=== PATIENT | male | born 1965 | race Caucasian/White ===

== ENCOUNTER 2020-11-01 10:21 | Outpatient (REF) | payer OTHER, SELFPAY | END 2020-11-01 10:22 | disposition home or self-care (01) | LOC: HO.LAB 10:21 | PROVIDERS: Visit Provider Internal Medicine | DX: Z20.828 Contact with and (suspected) exposure to other viral communicable diseases (principal) | CPT/HCPCS: C9803; U0003 ==

== ENCOUNTER 2022-01-22 06:14 | Outpatient (REF) | payer OTHER, SELFPAY ==
[2022-01-22 06:28] LABS: MANUAL DIFF FLAG NO
[2022-01-22 07:36] LABS: Basophils Percent Auto 0.3 % (0-2); Eosinophils Absolute Auto 0.1 X10*3/uL (0.0-0.4); Eosinophils Percent Auto 1.1 % (0-4); Hematocrit 43.9 % (42.0-52.0); Hemoglobin 14.7 g/dl (14.0-18.0); Imm Gran Abs Auto 0.02 X10*3/uL (0.00-0.03); Imm Gran Pct Auto 0.3 % (0.0-0.4); Lymphocytes Absolute Auto 2.3 X10*3/uL (1.2-4.9); Lymphocytes Percent Auto 36.9 % (20-40); Mean Corpuscular HGB Conc 33.5 g/dl (31.0-36.0); Mean Corpuscular Hemoglobin 30.5 pg (27.0-33.0); Mean Corpuscular Volume 91.1 fL (80.0-98.0); Mean Platelet Volume 9.9 fL (9.4-12.4); Monocytes Absolute Auto 0.5 X10*3/uL (0.1-1.2); Monocytes Percent Auto 7.7 % (2-11); Neutrophils Absolute Auto 3.3 x10*3/uL (2.0-8.3); Neutrophils Percent Auto 53.7 % (45-73); Platelet Count 293 X10*3/uL (160-400); Red Blood Count 4.82 X10*6/uL (4.60-5.80); Red Cell Distribution Width 11.9 % (11.0-16.0); White Blood Count 6.1 X10*3/uL (4.8-10.8)
[2022-01-22 08:08] LABS: Alanine Aminotransferase 35 U/L (0-40); Albumin Level 4.7 g/dL (3.5-5.0); Alkaline Phosphatase 91 U/L (39-117); Anion Gap 12 (12-20); Aspartate Amino Transferase 30 U/L (5-37); Bilirubin Direct 0.4 mg/dL (0.0-0.5); Bilirubin Total 1.1 mg/dL (0.0-1.0); Blood Urea Nitrogen 18 mg/dL (9-16); Carbon Dioxide 28 mmol/L (22-29); Chloride 104 mmol/L (96-108); Cholesterol 212 mg/dL; Estimated Glomerular Filt Rate > 60; Glucose Random 91 mg/dL (60-115); HDL Cholesterol 48 mg/dL; LDL Cholesterol Calculated 132 mg/dl; Potassium 4.8 mmol/L (3.3-5.1); Sodium 139 mmol/L (135-145); Total Protein 7.8 g/dL (6.5-8.0); Triglycerides 161 mg/dL
== END 2022-01-22 06:15 | disposition home or self-care (01) ==
LOC: HO.LAB 06:14
PROVIDERS: PCP Internal Medicine Geriatric Medicine; Visit Provider Internal Medicine Geriatric Medicine
DX: Z00.00 Encounter for general adult medical examination without abnormal findings (principal); Z13.1 Encounter for screening for diabetes mellitus; Z13.220 Encounter for screening for lipoid disorders
CPT/HCPCS: 36415; 80048; 80061; 80076; 85025

== ENCOUNTER 2023-12-10 07:55 | Outpatient (REF) | payer OTHER, SELFPAY ==
[2023-12-10 08:13] LABS: MANUAL DIFF FLAG NO
[2023-12-10 09:25] LABS: Basophils Percent Auto 0.4 % (0-2); Eosinophils Absolute Auto 0.1 X10*3/uL (0.0-0.4); Eosinophils Percent Auto 1.2 % (0-4); Hematocrit 42.6 % (42.0-52.0); Hemoglobin 14.2 g/dl (14.0-18.0); Imm Gran Abs Auto 0.04 X10*3/uL (0.00-0.03); Imm Gran Pct Auto 0.6 % (0.0-0.4); Lymphocytes Absolute Auto 2.2 X10*3/uL (1.2-4.9); Lymphocytes Percent Auto 33.2 % (20-40); Mean Corpuscular HGB Conc 33.3 g/dl (31.0-36.0); Mean Corpuscular Hemoglobin 30.4 pg (27.0-33.0); Mean Corpuscular Volume 91.2 fL (80.0-98.0); Monocytes Absolute Auto 0.5 X10*3/uL (0.1-1.2); Neutrophils Absolute Auto 3.9 x10*3/uL (2.0-8.3); Neutrophils Percent Auto 57.6 % (45-73); Platelet Count 326 X10*3/uL (160-400); Red Blood Count 4.67 X10*6/uL (4.60-5.80); Red Cell Distribution Width 11.6 % (11.0-16.0); White Blood Count 6.7 X10*3/uL (4.8-10.8)
[2023-12-10 10:19] LABS: Alanine Aminotransferase 29 U/L (0-40); Albumin Level 4.4 g/dL (3.5-5.0); Alkaline Phosphatase 75 U/L (39-117); Anion Gap 12 (12-20); Aspartate Amino Transferase 23 U/L (5-37); Bilirubin Total 0.7 mg/dL (0.0-1.0); Blood Urea Nitrogen 15 mg/dL (9-16); Calcium 9.7 mg/dL (8.4-10.2); Carbon Dioxide 27 mmol/L (22-29); Chloride 109 mmol/L (96-108); Cholesterol 158 mg/dL (<200); Estimated Glomerular Filt Rate > 60; Glucose Random 84 mg/dL (60-115); HDL Cholesterol 37 mg/dL (>40); LDL Cholesterol Calculated 94 mg/dL (<100); Potassium 4.2 mmol/L (3.3-5.1); Sodium 144 mmol/L (135-145); Total Protein 7.6 g/dL (6.5-8.0); Triglycerides 138 mg/dL (<150)
[2023-12-10 10:39] LABS: PSA,Total (Free>4and<10) 1.84 ng/mL (0.00-4.00)
== END 2023-12-10 07:56 | disposition home or self-care (01) ==
LOC: HO.LAB 07:55
PROVIDERS: PCP Internal Medicine Geriatric Medicine; Visit Provider Internal Medicine Geriatric Medicine
DX: Z12.5 Encounter for screening for malignant neoplasm of prostate (principal); I10 Essential (primary) hypertension; E78.5 Hyperlipidemia, unspecified
CPT/HCPCS: 36415; 80053; 80061; 84153; 85025

== ENCOUNTER 2023-12-31 07:34 | Outpatient (REF) | payer OTHER, SELFPAY ==
[2023-12-31 08:45] LABS: Anion Gap 11 (12-20); Blood Urea Nitrogen 18 mg/dL (9-16); Calcium 9.7 mg/dL (8.4-10.2); Carbon Dioxide 30 mmol/L (22-29); Chloride 103 mmol/L (96-108); Estimated Glomerular Filt Rate > 60; Glucose Random 93 mg/dL (60-115); Potassium 3.7 mmol/L (3.3-5.1); Sodium 140 mmol/L (135-145)
== END 2023-12-31 07:35 | disposition home or self-care (01) ==
LOC: HO.LAB 07:34
PROVIDERS: PCP Internal Medicine Geriatric Medicine; Visit Provider Internal Medicine Geriatric Medicine
DX: I10 Essential (primary) hypertension (principal)
CPT/HCPCS: 36415; 80048

== ENCOUNTER 2024-01-20 06:11 | Outpatient (REF) | payer OTHER, SELFPAY ==
[2024-01-20 07:54] LABS: Anion Gap 11 (12-20); Blood Urea Nitrogen 20 mg/dL (9-16); Calcium 9.8 mg/dL (8.4-10.2); Carbon Dioxide 31 mmol/L (22-29); Chloride 103 mmol/L (96-108); Estimated Glomerular Filt Rate > 60; Glucose Random 93 mg/dL (60-115); Potassium 4.3 mmol/L (3.3-5.1); Sodium 141 mmol/L (135-145)
== END 2024-01-20 06:12 | disposition home or self-care (01) ==
LOC: HO.LAB 06:11
PROVIDERS: PCP Internal Medicine Geriatric Medicine; Visit Provider Internal Medicine Geriatric Medicine
DX: I10 Essential (primary) hypertension (principal)
CPT/HCPCS: 36415; 80048

== ENCOUNTER 2024-02-11 07:40 | Outpatient (REF) | payer OTHER, SELFPAY ==
[2024-02-11 09:22] LABS: Anion Gap 14 (12-20); Blood Urea Nitrogen 14 mg/dL (9-16); Calcium 9.7 mg/dL (8.4-10.2); Carbon Dioxide 27 mmol/L (22-29); Chloride 106 mmol/L (96-108); Estimated Glomerular Filt Rate > 60; Glucose Random 92 mg/dL (60-115); Potassium 4.5 mmol/L (3.3-5.1); Sodium 142 mmol/L (135-145)
== END 2024-02-11 07:41 | disposition home or self-care (01) ==
LOC: HO.LAB 07:40
PROVIDERS: PCP Internal Medicine Geriatric Medicine; Visit Provider Internal Medicine Geriatric Medicine
DX: I10 Essential (primary) hypertension (principal)
CPT/HCPCS: 36415; 80048

== ENCOUNTER 2024-09-15 08:17 | Outpatient (REF) | payer OTHER, SELFPAY ==
[2024-09-15 09:02] LABS: Anion Gap 13 (12-20); Blood Urea Nitrogen 15 mg/dL (9-16); Calcium 10.1 mg/dL (8.4-10.2); Carbon Dioxide 25 mmol/L (22-29); Chloride 108 mmol/L (96-108); Estimated Glomerular Filt Rate > 60; Glucose Random 94 mg/dL (60-115); Potassium 4.1 mmol/L (3.3-5.1); Sodium 142 mmol/L (135-145)
== END 2024-09-15 08:18 | disposition home or self-care (01) ==
LOC: HO.LAB 08:17
PROVIDERS: PCP Internal Medicine Geriatric Medicine; Visit Provider Internal Medicine Geriatric Medicine
DX: I10 Essential (primary) hypertension (principal)
CPT/HCPCS: 36415; 80048

== ENCOUNTER 2025-01-03 08:45 | Outpatient (REF) | payer BC, SELFPAY ==
--- OUTSIDE RECORDS SUMMARY | 2025-01-03 09:19 | XMS_ITS | Encounter Summary ---
Author Organization [employer] Address [address] [facility] 7t [place] [address] Care Team Providers Care Molded Goods Spot Picker Name Role Phone Name, Grant HILTON Primary Care Provider [phone] Reason for Visit * Reason Onset Date Comments Med Refill 04/25/2024 Encounter Details Date Type Department Care Team ([facility] st Contact Info) Description 04/25/2024 Refill [facility] MEDICINE [address] [place], [place] [phone] Name, MD Grant [address] [place] [address] Hypertension, unspecified type Social History Tobacco Use Types Packs/Day Years Used Date Smoking Tobacco: Never Smokeless Tobacco: Never Alcohol Use Standard Drinks/Week Comments Yes 0 (1 standard drink = 0.6 oz pur e alcohol) socially Depression Answer Date Recorded Patient Health Questionnaire-9 Score 0 04/03/2024 Patient Health Questionnaire-9 Score 0 04/03/2024 Last PHQ-9: Questionnaire Data Not on file 0 04/03/2024 Housing Stability Answer Date Recorded What is your housing situation today? I have cain florez 04/03/[address] you li ve. Do you have problems with any of the following? None of the above 04/03/2024 Food Insecurity Answer Date Recorded Within the past 12 months, y ou worried that your food would run out before you got money to buy more: Never True 04/03/2024 Within the past 12 months,th e food you bought just didn't last and you didn't have enough money to get more: Never True Transportation Answer Date Recorded In the past 12 months, has l ack of transportation kept you from medical appts, meetings, work or from getting things needed for daily living? No 04/03/2024 Utilities Answer Date Recorded In the past 12 months, has t he electric, gas, oil or water company threatened to shut off services in your home? No 04/03/2024 Depression Answer Date Recorded Patient Health Questionnaire-2 Score 0 04/03/2024 Sex and Gender Information Value Date Recorded Sex Assigned at Male 09/13/2022 10:22 AM EDT Legal Sex Male 10:22 AM EDT Gender Identity Male 09/13/2022 10:22 AM EDT Sexual Orientation Straight 09/13/2022 10 :22 AM EDT documented as of this encounter Plan of Treatment Upcoming Encounters Date Type Department Care Team (Late st Contact Info) Description 01/15/2025 3:30 PM EST Office Visit [facility] MEDICINE [address] [place] [phone] Name, MD Grant [address] [place] [address] documented as of this encounter Visit Diagnoses Diagnosis Hypertension, unspecified type documented in this encounter Additional Health Concerns Assessment Noted Time PHQ-9 Depression Total Score: 0 04/03/20 24 3:30 PM EDT documented as of this encounter Care Teams Molded Goods Spot Picker Relationship Specialty Start Date End Date NameGrant MD [address] [place] [address] PCP - General Family Medicine 11/10/21 documented as of this encounter
--- OUTSIDE RECORDS SUMMARY | 2025-01-03 09:19 | XMS_ITS | Encounter Summary ---
Author Organization [facility] Address [address] [place] [address] 7 [place] [address] Care Team Providers Care Emergency Worker Name Role Phone Name, Grant HILTON Primary Care Provider [phone] Encounter Details Date Type Department Care Team (Late st Contact Info) Description 04/18/2023 Abstract [facility] MEDICINE [address] [place] [address] [phone] Name, MD Grant [address] [place] [address] Social History Tobacco Use Types Packs/Day Years Used Date Smoking Tobacco: Never Smokeless Tobacco: Never Depression Answer Date Recorded Patient Health Questionnaire-2 Score 0 11/26/2022 Sex and Gender Information Value Date Recorded Sex Assigned at Male 09/13/2022 10:22 AM EDT Legal Sex Male 10:22 AM EDT Gender Identity Male 09/13/2022 10:22 AM EDT Sexual Orientation Straight 09/13/2022 10 :22 AM EDT documented as of this encounter Plan of Treatment Upcoming Encounters Date Type Department Care Team (Late st Contact Info) Description 01/15/2025 3:30 PM EST Office Visit [facility] MEDICINE [address] [place] [address] [phone] NameGrant MD [address] [place] [address] [phone] documented as of this encounter Procedures Procedure Name Priority Date/Time Associated Diagnosis Comments COLONOSCOPY Routine 02/27/2016 10:43 AM EDT documented in this encounter Results * Hm Colonoscopy (02/27/2016 10:43 AM EDT) Colonoscopy Normal Normal Narrative Tari Jung - 02/27/2016 10:43 AM EDT Recommended 10 year follow up us Historical Provider HEALTH MAINTENANCE Final Result documented in this encounter Visit Diagnoses Not on filedocumented in this encounter Care Teams Emergency Worker Relationship Specialty Start Date End Date Name, MD Grant [address] [place] [phone] PCP - General Family Medicine 11/10/21 documented as of this encounter
--- OUTSIDE RECORDS SUMMARY | 2025-01-03 09:19 | XMS_ITS | Clinical Summary ---
Author Organization [employer] Address 75 [facility] 7t [place] [address] Care Team Providers Care Photocopier Technician Name Role Phone Name, Grant HILTON Primary Care Provider [phone] Allergies No known active allergies Medications olopatadine (Pataday) 0.2 % ophthalmic solutionIndica tions:Swelling of eyelid, unspecified laterality Administer 1 drop into affected eye(s) in the morning. 2.5 mL 2 11/26/19 23 Active Blood Pressure kitIndications :Hypertension, unspecified type Use once day 1 kit 12/06/19 24 Active metoprolol succinate XL (Toprol-XL) 25 MG 24 hr tabletIndicati ons:Hypertensi on, unspecified type TAKE 1 TABLET BY MOUTH EVERY DAY 90 tablet 3 07/02/20 24 Active rosuvastatin (Crestor) 10 MG tabletIndicati ons:High cholesterol TAKE 1 TABLET BY MOUTH EVERY DAY 90 tablet 10/05/20 24 Active olmesartan-hyd roCHLOROthiazi de (Benicar HCT) 40-12.5 MG tablet Take 1 tablet by mouth Once per day. 30 tablet 11 12/24/19 25 026 Active losartan (Cozaar) 50 MG tablet Take 1 tablet (50 mg) by mouth Once per day. 30 tablet 2 08/31/20 24 025 Discontinued losartan (Cozaar) 50 MG tablet TAKE 1 TABLET(50 MG) BY MOUTH DAILY 90 tablet 12/12/19 25 025 Discontinued(Th erapy completed) Active Problems Problem Noted Date Diagnosed Date Hyperlipidemia 04/04/2010 HBP (high blood pressure) 09/15/2007 Overview (08/08/2023): 07/23 holter nad Encounters Date Type Department Care Team Description 12/24/2024 3:30 PM EST Office Visit [facility] MEDICINE [address] [place] [address] Emily Caceres NP Hypertension, unspecified type (Primary Dx) 12/24/2024 Travel 12/19/2024 Telephone [facility] MEDICINE [address] [place] [address] Name, MD Grant Nurse Triage 2024 Refill [facility] MEDICINE [address] [place] [address] Name, MD Grant 2024 Refill [facility] MEDICINE [address] [place] [phone] Name, MD Grant 11/15/2024 Telephone [facility] MEDICINE [address] [place] [address] Allen Morataya [place] vince recalls 10/05/2024 Refill [facility] MEDICINE [address] [place] [address] Nicol Horton MD High cholesterol from Last 3 Months Immunizations Name Administration Dates Next Due Influenza injectable quadriv alent preservative free 08/08/2023,11/10/2021,08/06/2011 Influenza, IIV3, injectable 08/23/2020,0 08/06/2011,09/05/2008,2006 Pfizer Covid-19 Vaccine 12+ 03/20/2021, 1 TD (adult), 2 Lf tetanus tox oid, preservative free, adsorbed 01/09/2018 Tdap 12/08/2007 Social History Tobacco Use Types Packs/Day Years Used Date Smoking Tobacco: Never Smokeless Tobacco: Never Tobacco Cessation:Counseling Given: Not Answered Alcohol Use Standard Drinks/Week Comments Yes 0 [...] Orientation Straight 09/13/2022 10 :22 AM EDT Last Filed Vital Signs Vital Sign Reading Time Taken Comments Blood Pressure 182/84 12/24/2024 3:22 PM EST second time 140/93 Pulse 73 12/24/2024 3:22 PM EST Temperature 34.9 ??C (94.8 ??F) 12/24/2024 3 :22 PM EST Respiratory Rate 18 12/24/2024 3:22 PM EST Oxygen Saturation 98% 12/24/2024 3:2 2 PM EST Inhaled Oxygen Concentration - - Weight 76 kg (167 lb 9.6 oz) 12/24/2024 3:22 PM EST Height 175.3 cm (5' 9 ) 12/24/2024 3:22 PM EST Body Mass Index 24.75 12/24/2024 3:22 PM EST Plan of Treatment Upcoming Encounters Date Type Department Care Team (Late st Contact Info) Description 01/15/2025 3:30 PM EST Office Visit [facility] MEDICINE [address] [place] [address] Name, MD Grant [address] [place] [address] Health Maintenance Due Date Last Done Comments CT Colonography 1963 FIT DNA/Cologuard 1963 FIT 1963 FOBT 1963 HIV Screening 1963 Sigmoidoscopy 1963 Alcohol/Substance Use Screening 1975 Pneumococcal Vaccine: 50+ Years (1 of 1 - PCV) 2013 COVID-19 Vaccine ( - 2023- season) 2024 11/02/2021, 03/20/2021, 02/27/2021 Influenza Vaccine (#1) 2024 , 11/10/2021, 08/23/2020, Additional history exists Depression Screening 04/03/2025 04/03/2024, 04/03/20 24 SDOH Screening 04/03/2025 04/03/2024 Tobacco Screening 12/24/2025 12/24/2024 DTaP/Tdap/Td Vaccines (3 - Td or Tdap) 01/09/2028 01/09/2018, 12/08/2007 Lipid Panel 12/10/2028 12/10/2023, 12/03/2022 Colonoscopy 04/25/2034 04/25/2024, 02/12, 09/26/2014, Additional history exists Colorectal Cancer Screening 04/25/2034 RSV Patients and Patients Aged 60 years or older (1 - 1-dose 75+ series) 2038 Hepatitis C Screening Completed 03/03/2013, 013 Zoster Vaccines Completed 11/10/2024, 06/29/2024 HIB Vaccines Aged Out No longer eligi ble based on patient's age to complete this topic HPV Vaccines Aged Out No longer eligi ble based on patient's age to complete this topic Hepatitis A Vaccines Aged Out No long er eligible based on patient's age to complete this topic Hepatitis B Vaccines Aged Out No long er eligible based on patient's age to complete this topic IPV Vaccines Aged Out No longer eligi ble based on patient's age to complete this topic Meningococcal Vaccine Aged Out No reed isabel eligible based on patient's age to complete this topic RSV under 20 months Aged Out No longe r eligible based on patient's age to complete this topic Rotavirus Vaccines Aged Out No longer eligible based on patient's age to complete this topic Procedures Procedure Name Priority Date/Time Associated Diagnosis Comments COLONOSCOPY Routine 04/25/2024 LIPID PANEL, STANDARD Routine 12/10/2023 8:08 AM EST Screening for colon cancer HEPATITIS C ANTIBODY Routine 03/03/2013 from Last 3 Months or Most Recently Relevant to Health Maintenance Results * Colonoscopy (04/25/2024) Colonoscopy Normal Normal us Grant Name HEALTH MAINTENANCE Final Result * (ABNORMAL) Lipid Panel, Standard (12/10/2023 8:08 AM EST) Triglycerides 138 <150 mg/dL [facility] Comment:Desirable Triglyceri de: less than 150 mg/dLBorderline High Triglyceride 150-199 mg/dLHigh Triglyceride: 200-499 mg/dLVery High Triglyceride: greater than or equal to 5OO mg/dL Cholesterol 158 <200 mg/dL [facility] Comment:Desirable Cholestero l: less than 200 mg/dLBorderline High Cholesterol: 200-239 mg/dLHigh Cholesterol: greater than 239 mg/dL LDL Cholesterol Calculated 94 <100 mg/dL [facility] Comment:Desirable LDL: less than 100 mg/dLNear Optimal/Above Optimal LDL: 110- 129 mg/dLBorderline High LDL: 130-159 mg/dLHigh LDL: 160-189 mg/dLVery High LDL: greater than or equal to 190 mg/dL HDL Cholesterol 37(L) >40 mg/dL [facility] Comment:Desirable HDL: great er than 40 mg/dL Note: This HDL assay may give artificially low results in patients with liver disease. Blood Venous blood specimen / Unknown 12/10/2023 8:08 AM EST 12/10/2023 8:10 AM EST us Grant Merritt MD LAB BLOOD ORDERABLES Final Resul t [facility] [address] [place] [address] [phone] * HM Hepatitis C Antibody (03/03/2013) Hepatitis C Antibody Nonreactive Blood Grant Merritt MD HEALTH MAINTENANCE Final Result from Last 3 Months or Most Recently Relevant to Health Maintenance Insurance [place] [address] [facility] PPO Care Teams Photocopier Technician Relationship Specialty Start Date End Date Name, MD Grant [address] [place] [address] PCP - General Family Medicine 11/10/21
--- OUTSIDE RECORDS SUMMARY | 2025-01-03 09:19 | XMS_ITS | Encounter Summary ---
Author Organization [employer] Address [address] [facility] 7t [place] [address] Care Team Providers Care Survey Research Associate Name Role Phone Name, Grant HILTON Primary Care Provider [phone] Encounter Details Date Type Department Care Team (Latest Contact Info) Description 12/24/2024 Travel Social History Tobacco Use Types Packs/Day Years [...] Description 01/15/2025 3:30 PM EST Office Visit [facility] MEDICINE [address] [place] [address] NameGrant MD [address] [place] [address] documented as of this encounter Visit Diagnoses Not on filedocumented in this encounter Additional Health Concerns Assessment Noted Time PHQ-9 Depression Total Score: 0 04/03/20 24 3:30 PM EDT documented as of this encounter Care Teams Survey Research Associate Relationship Specialty Start Date End Date NameGrant MD [address] [place] [phone] PCP - General Family Medicine 11/10/21 documented as of this encounter
--- OUTSIDE RECORDS SUMMARY | 2025-01-03 09:19 | XMS_ITS | Encounter Summary ---
Author Organization [employer] Address [address] [facility] 7 [place] [address] Care Team Providers Care Build And Deployment Engineer Name Role Phone Name, Grant HILTON Primary Care Provider [phone] Reason for Visit * Reason Onset Date Comments Nurse Triage 12/19/2024 Encounter Details Date Type Department Care Team ([facility] st Contact Info) Description 12/19/[address] [facility] MEDICINE [address] [place], [place] [phone] Name, MD Grant [address] [place] [address] Nurse Triage Social History Tobacco Use Types Packs/Day Years [...] AM EDT documented as of this encounter Miscellaneous Notes * Telephone Encounter - Christy Houston RN - 12/19/2024 5:09 PM EST Triage call Pt reports BP has been fine around 127/84, Pt has been watching diet , exercising and taking BP meds as prescribed. Losartan 50mg and toprol XL 25mg. Pt reports checking BP today and it was 166/97, Pt was at work, no symptoms reported. Neg for headache, blurred vision, difficulty breathing , chest pain. Pt is asking to see provider to check BP and adjust meds if needed. Pt is advised to take BP in morning and evening before bed and document on paper. Bring this information to ASK apt with ARTEM Caceres 12/24/24 @ 330pm. Pt agrees with disposition and will go to ED if becomes symptomaticwith high BP. Insurance is verified as active. Protocol Used: Blood Pressure - High (Adult) Protocol-Based Disposition: See in Office or Video Visit within 2 Weeks Video visit not offered Positive Triage Question: * Systolic BP >= 130 OR Diastolic >= 80, and is taking BP medications * All higher-acuity triage questions were negative Care Advice Discussed: * High Blood Pressure * High Blood Pressure - Lifestyle Changes * How to Check Your Blood Pressure? * Reasons To Call Back - Headache, blurred vision, difficulty talking, or difficulty walking occurs - Chest pain or difficulty breathing occurs - You want to go into the office for a blood pressure check - You become worse * Telephone Encounter - Sheeba Bruno - 12/19/2024 4:02 PM EST Symptom: High Blood Pressure - Caller Reports (166/) Outcome: Schedule a same-day appointment or talk to a nurse or provider today Reason: Caller denied all higher acuity questions The caller accepted this outcome. [phone] (syrian) documented in this encounter Plan of Treatment Upcoming Encounters Date Type Department Care Team (Late st Contact Info) Description 01/15/2025 3:30 PM EST Office Visit [facility] MEDICINE [address] [place] [address] [phone] Name, MD Grant [address] [place] [phone] documented as of this encounter Visit Diagnoses Not on filedocumented in this encounter Additional Health Concerns Assessment Noted Time PHQ-9 Depression Total Score: 0 04/03/20 24 3:30 PM EDT documented as of this encounter Care Teams Build And Deployment Engineer Relationship Specialty Start Date End Date Name, MD Grant [address] [place] [address] [phone] PCP - General Family Medicine 11/10/21 documented as of this encounter
--- OUTSIDE RECORDS SUMMARY | 2025-01-03 09:19 | XMS_ITS | Encounter Summary ---
Author Organization [employer] Address [address] [facility] 7t [place] [address] Care Team Providers Care Contracting Executive Name Role Phone Name, Grant HILTON Primary Care Provider [phone] Reason for Visit * Reason Comments Med Refill Encounter Details Date Type Department Care Team ([facility] st Contact Info) Description 2024 Refill [facility] MEDICINE [address] [place], [place] [phone] Name, MD Grant [address] [place] [address] Social History Tobacco Use Types Packs/Day Years [...] Description 01/15/2025 3:30 PM EST Office Visit [facility] MEDICINE [address] [place] [phone] Name, MD Grant [address] [place] [address] documented as of this encounter Visit Diagnoses Not on filedocumented in this encounter Additional Health Concerns Assessment Noted Time PHQ-9 Depression Total Score: 0 04/03/20 24 3:30 PM EDT documented as of this encounter Care Teams Contracting Executive Relationship Specialty Start Date End Date Name, MD Grant [address] [place] [phone] PCP - General Family Medicine 11/10/21 documented as of this encounter
--- OUTSIDE RECORDS SUMMARY | 2025-01-03 09:19 | XMS_ITS | Encounter Summary ---
Author Organization [employer] Address [address] [facility] 7 [place] [address] Care Team Providers Care Tool Grinder Operator Surface Name Role Phone Name, Grant HILTON Primary Care Provider [phone] Reason for Visit * Reason Onset Date Comments Med Refill 2024 Encounter Details Date Type Department Care Team ([facility] st Contact Info) Description 2024 Refill [facility] MEDICINE [address] [place], [place] [phone] Name, MD Grant [address] [place] [address] Social History Tobacco Use Types Packs/Day Years [...] Description 01/15/2025 3:30 PM EST Office Visit [facility] MEDICINE [address] [place] [phone] NameGrant MD [address] [place] [address] documented as of this encounter Visit Diagnoses Not on filedocumented in this encounter Additional Health Concerns Assessment Noted Time PHQ-9 Depression Total Score: 0 04/03/20 24 3:30 PM EDT documented as of this encounter Care Teams Tool Grinder Operator Surface Relationship Specialty Start Date End Date NameGrant MD [address] [place] [phone] PCP - General Family Medicine 11/10/21 documented as of this encounter
--- OUTSIDE RECORDS SUMMARY | 2025-01-03 09:19 | XMS_ITS | Encounter Summary ---
Author Organization [employer] Address 75 [facility] 7t [place] [address] Care Team Providers Care Biology Manager Name Role Phone Name, Grant HILTON Primary Care Provider [phone] Encounter Details Date Type Department Care Team (Late st Contact Info) Description 12/24/2024 3:30 PM EST Office Visit [facility] MEDICINE [address] [place] [address] Emily Caceres NP [address] [place], [place] [phone] Hypertension, unspecified type (Primary Dx) Social History Tobacco Use Types Packs/Day Years [...] AM EDT documented as of this encounter Last Filed Vital Signs Vital Sign Reading [...] Mass Index 24.75 12/24/2024 3:22 PM EST documented in this encounter Plan of Treatment Upcoming Encounters Date Type Department Care Team (Late st Contact Info) Description 01/15/2025 3:30 PM EST Office Visit [facility] MEDICINE [address] [place] [address] Name, MD Grant [address] [place] [address] Scheduled Orders Name Type Priority Associated Diagnoses Orde r Schedule Basic Metabolic Panel Lab Routine Hypertension, unspecified type Expected: 12/24/2024 (Approximate), Expires: 12/24/2025 documented as of this encounter Visit Diagnoses Diagnosis Hypertension, unspecified type- Primary documented in this encounter Additional Health Concerns Assessment Noted Time PHQ-9 Depression Total Score: 0 04/03/20 24 3:30 PM EDT documented as of this encounter Care Teams Biology Manager Relationship Specialty Start Date End Date Name, MD Grant [address] [place] [address] PCP - General Family Medicine 11/10/21 documented as of this encounter
--- OUTSIDE RECORDS SUMMARY | 2025-01-03 09:19 | XMS_ITS | Encounter Summary ---
Author Organization [employer] [facility] Address [address] [place] [address] Care Team Providers Care Coffee Supervisor Name Role Phone NameGrant MD Primary Care Provider [phone] Reason for Visit * Reason Onset Date Comments Med Refill 07/06/2023 Encounter Details Date Type Department Care Team (Late st Contact Info) Description 07/06/2023 Refill [facility] MEDICINE [address] [place] [address] [phone] Grant Merritt MD [address] [place] [phone] Hypertension, unspecified type Social History Tobacco Use [...] Description 01/15/2025 3:30 PM EST Office Visit [facility] MEDICINE [address] [place] [address] [phone] Grant Merritt MD [address] [place] [phone] documented as of this encounter Visit Diagnoses Diagnosis Hypertension, unspecified type documented in this encounter Care Teams Coffee Supervisor Relationship Specialty Start Date End Date Grant Merritt MD [address] [place] [address] PCP - General Family Medicine 11/10/21 documented as of this encounter
--- OUTSIDE RECORDS SUMMARY | 2025-01-03 09:20 | XMS_ITS | Encounter Summary ---
Author Organization [employer] Address [address] [place] [address] 7 [place] [address] Care Team Providers Care Heavy Coil Winder Name Role Phone Name, Grant HILTON Primary Care Provider [phone] Encounter Details Date Type Department Care Team (Late st Contact Info) Description 11/16/2022 Orders Only [facility] [address] [place] [address] Sandra Hopper LPN Social History Tobacco Use Types Packs/Day Years Used Date Smoking Tobacco: Never Assessed Sex and Gender Information Value Date Recorded [...] 3:30 PM EST Office Visit [facility] MEDICINE [address] [place] [address] Grant Merritt MD [address] [place] [address] documented as of this encounter Visit Diagnoses Not on filedocumented in this encounter Care Teams Heavy Coil Winder Relationship Specialty Start Date End Date Grant Merritt MD [address] [place] [address] PCP - General Family Medicine 11/10/21 documented as of this encounter
--- OUTSIDE RECORDS SUMMARY | 2025-01-03 09:20 | XMS_ITS | Encounter Summary ---
Author Organization [employer] [facility] Address [address] [facility] 7 [place] [address] Care Team Providers Care Gel Coater Name Role Phone Name, Grant HILTON Primary Care Provider [phone] Reason for Visit * Reason Onset Date Comments Med Refill 11/16/2022 Encounter Details Date Type Department Care Team ([facility] st Contact Info) Description 11/16/2022 Telephone [facility] [address] [place] [address] Name, MD Grant [address] [place] [address] Med Refill Social History Tobacco Use Types Packs/Day Years Used Date Smoking Tobacco: Never Assessed Depression Answer Date Recorded Patient Health Questionnaire-9 [...] Orientation Straight 09/13/2022 10 :22 AM EDT COVID-19 Exposure Response Date Recorded In the last 10 days, have yo u been in contact with someone who was confirmed or suspected to have Coronavirus/COVID-19? No / Unsure 11/26/2022 3:09 PM EST documented as of this encounter Miscellaneous Notes * Telephone Encounter - Kay Akins - 11/16/2022 8:31 AM EST Tc from pt requesting a med refill for Metoprolol and rosuvastatin. Please contact at [phone] Speaks Turkish. documented in this encounter Plan of Treatment Upcoming Encounters Date Type Department Care Team (Late st Contact Info) Description 01/15/2025 3:30 PM EST Office Visit [facility] [address] [place] [phone] Name, MD Grant [address] [place] [address] documented as of this encounter Visit Diagnoses Not on filedocumented in this encounter Care Teams Gel Coater Relationship Specialty Start Date End Date Name, MD Grant [address] [place] [phone] PCP - General Family Medicine 11/10/21 documented as of this encounter
[2025-01-03 10:29] LABS: Anion Gap 13 (12-20); Blood Urea Nitrogen 23 mg/dL (9-16); Calcium 10.1 mg/dL (8.4-10.2); Carbon Dioxide 28 mmol/L (22-29); Chloride 104 mmol/L (96-108); Cholesterol 193 mg/dL (<200); Estimated Glomerular Filt Rate > 60; Glucose Random 93 mg/dL (60-115); HDL Cholesterol 48 mg/dL (>40); LDL Cholesterol Calculated 108 mg/dL (<100); Potassium 4.5 mmol/L (3.3-5.1); Sodium 140 mmol/L (135-145); Triglycerides 187 mg/dL (<150)
== END 2025-01-03 08:46 | disposition home or self-care (01) ==
LOC: HO.LAB 08:45
PROVIDERS: PCP Internal Medicine Geriatric Medicine; Visit Provider Nurse Practitioner Family
DX: I10 Essential (primary) hypertension (principal); Z12.11 Encounter for screening for malignant neoplasm of colon
CPT/HCPCS: 36415; 80048; 80061

== ENCOUNTER 2025-01-26 07:52 | Outpatient (REF) | payer BC, SELFPAY ==
--- OUTSIDE RECORDS SUMMARY | 2025-01-26 07:55 | XMS_ITS | Clinical Summary ---
Author Organization [employer] Address [address] [facility] 7t [place] [address] Care Team Providers Care Medical Services Assistant Name Role Phone Name, Grant HILTON Primary Care Provider Allergies No known active allergies Medications olopatadine [...] TABLET BY MOUTH EVERY DAY 90 tablet 01/07/20 25 Active olmesartan-hyd roCHLOROthiazi de (Benicar HCT) 40-12.5 MG tablet Take 1 tablet by mouth Once per day. 90 tablet 3 01/16/20 25 026 Active rosuvastatin (Crestor) 10 MG tabletIndicati ons:High cholesterol TAKE 1 TABLET BY MOUTH EVERY DAY 90 tablet 10/05/20 24 025 Discontinued olmesartan-hyd roCHLOROthiazi de (Benicar HCT) 40-12.5 MG tablet Take 1 tablet by mouth Once per day. 30 tablet 11 12/24/19 25 025 Discontinued(Re order (will not trigger notification to Pharmacy)) Active Problems Problem Noted Date Diagnosed Date Hyperlipidemia 04/04/2010 HBP (high blood pressure) 09/15/2007 Overview (08/08/2023): 07/23 holter nad Assessment & Plan (01/21/2025 10:11 AM EDT): Above goal today of <140/90 Continue to monitor at home, continue current regimen Aware to Return to clinic for increased bp or readings above 140/90 Meds adjusted Future labs ordered Encounters Date Type Department Care Team Description 01/16/2025 Refill [facility] [address] [place] [address] Emily Caceres NP 01/15/2025 3:30 PM EST Office Visit [facility] [place] [address] Grant Merritt MD Hypertension, unspecified type (Primary Dx); Screening for prostate cancer 01/15/2025 Travel 01/07/2025 Refill [facility] MED[facility] [address] [place] [address] Nicol Horton MD High cholesterol 01/05/2025 Refill [facility] [address] [place] [address] Grant Merritt MD High cholesterol 12/24/2024 3:30 PM EST Office Visit [facility] [address] [place] [address] Emily Caceres NP Hypertension, unspecified type (Primary Dx) 12/24/2024 Travel 12/19/2024 Telephone [facility] MED[facility] [address] [place] [address] Grant Merritt MD Nurse Triage 2024 Refill [facility] [address] [place] [address] Grant Merritt MD 2024 Refill [facility] [address] [place] [address] Grant Merritt MD 11/15/2024 Telephone [facility] [place] [address] [place] jan recalls from Last 3 Months Immunizations Name Administration [...] Sign Reading Time Taken Comments Blood Pressure 132/75 01/15/2025 4:04 PM EST Pulse 74 01/15/2025 3:29 PM EST Temperature 36.7 ??C (98 ??F) 01/15/2025 3:29 PM EST Respiratory Rate 18 01/15/2025 3:29 PM EST Oxygen Saturation 98% 01/15/2025 3:29 PM EST Inhaled Oxygen Concentration - - Weight 75.8 kg (167 lb 3.2 oz) 01/15/2025 3:29 P M EST Height 175.3 cm (5' 9 ) 01/15/2025 3:29 PM EST Body Mass Index 24.69 01/15/2025 3:29 PM EST Plan of Treatment Health Maintenance Due Date Last Done Comments CT Colonography 1963 FIT DNA/Cologuard 1963 FIT 1963 FOBT 1963 HIV Screening 1963 Sigmoidoscopy 1963 Alcohol/Substance Use Screening 1975 Pneumococcal Vaccine: 50+ Years (1 of 1 - PCV) 2013 COVID-19 Vaccine ( season) 2024 11/02/2021, 03/20/2021, 02/27/2021 Influenza Vaccine (#1) 2024 3, 11/10/2021, 08/23/2020, Additional history exists Depression Screening 04/03/2025 04/03/2024, 04/03/20 24 SDOH Screening 04/03/2025 04/03/2024 Tobacco Screening 01/15/2026 01/15/2025 DTaP/Tdap/Td Vaccines (3 - Td or Tdap) 01/09/2028 01/09/2018, 12/08/2007 Lipid Panel 01/03/2030 01/03/2025, 11/15, 12/03/2022 Colonoscopy 04/25/2034 04/25/2024, 02/12, 09/26/2014, Additional [...] Procedure Name Priority Date/Time Associated Diagnosis Comments LIPID PANEL, STANDARD Routine 01/03/2025 9:00 AM EST Hypertension, unspecified type BASIC METABOLIC PANEL Routine 01/03/2025 9:00 AM EST Hypertension, unspecified type COLONOSCOPY Routine 04/25/2024 HEPATITIS C ANTIBODY Routine 03/03/2013 from Last 3 Months or Most Recently Relevant to Health Maintenance Results * (ABNORMAL) Lipid Panel, Standard (01/03/2025 9:00 AM EST) Triglycerides 187(H) <150 mg/dL [facility] Comment:Desirable Triglyceri de: less than 150 mg/dLBorderline High Triglyceride 150-199 mg/dLHigh Triglyceride: 200-499 mg/dLVery High Triglyceride: greater than or equal to 5OO mg/dL Cholesterol 193 <200 mg/dL [facility] Comment:Desirable Cholestero l: less than 200 mg/dLBorderline High Cholesterol: 200-239 mg/dLHigh Cholesterol: greater than 239 mg/dL LDL Cholesterol Calculated 108(H) <100 mg/dL [facility] Comment:Desirable LDL: less than 100 mg/dLNear Optimal/Above Optimal LDL: 110- 129 mg/dLBorderline High LDL: 130-159 mg/dLHigh LDL: 160-189 mg/dLVery High LDL: greater than or equal to 190 mg/dL HDL Cholesterol 48 >40 mg/dL [facility] Comment:Desirable HDL: great er than 40 mg/dL Note: This HDL assay may give artificially low results in patients with liver disease. 01/03/2025 9:00 AM EST 01/03/2025 9:00 AM EST us Grant Merritt MD LAB BLOOD ORDERABLES Final Resul t Performing Organization Address [facility] [place] [facility]/ZIP Co de Phone Number [facility] [address] [place] [phone] * (ABNORMAL) Basic Metabolic Panel (01/03/2025 9:00 AM EST) Sodium 140 135 - 145 mmol/L [facility] Potassium 4.5 3.3 - 5.1 mmol/L [facility] Chloride 104 96 - 108 mmol/L [facility] Carbon Dioxide 28 22 - 29 mmol/L [facility] Anion Gap 13 12 - 20 [facility] Urea Nitrogen (BUN) 23(H) 9 - 16 mg/dL [facility] Creatinine, Serum 1.09 0.5 - 1.4 mg/dL [facility] Estimated Glomerular Filt Rate >60 [facility] Comment:Chronic Kidney Disea se: Estimated GFR < 60 mL/min/[id number] Kidney Disease: Estimated GFR < 15 mL/min/1.73m2 Glucose 93 60 - 115 mg/dL [facility] Calcium 10.1 8.4 - 10.2 mg/dL [facility] Blood Venous blood specimen / Unknown 01/03/2025 9:00 AM EST 01/03/2025 9:00 AM EST us Emily Caceres NP LAB BLOOD ORDERABLES Final Resul t [facility] [address] [place] [phone] * Hm Colonoscopy (04/25/2024) Colonoscopy Normal Normal Result Nohemy Merritt MD HEALTH MAINTENANCE Final Result * HM Hepatitis C Antibody (03/03/2013) Hepatitis C Antibody Nonreactive Blood Result Nohemy Merritt MD HEALTH MAINTENANCE Final Result from Last 3 Months or Most Recently Relevant to Health Maintenance Insurance [facility]US [facility] PPO Care Teams Medical Services Assistant Relationship Specialty Start Date End Date Name, MD Grant [address] [place] [address] PCP - General Family Medicine 11/10/21
--- OUTSIDE RECORDS SUMMARY | 2025-01-26 07:55 | XMS_ITS | Encounter Summary ---
Author Organization [employer] Address [address] [facility] 7 [place] [address] Care Team Providers Care Machine Former Name Role Phone Name, Grant HILTON Primary Care Provider [phone] Reason for Visit * Reason Onset Date Comments Nurse Triage 12/19/2024 Encounter Details Date Type Department Care Team ([facility] st Contact Info) Description 12/19/2024 Telephone [facility] MEDICINE [address] [place], [place] [phone] Name, MD Grant [address] [place] [address] Nurse Triage Social History Tobacco Use Types [...] acuity questions The caller accepted this outcome. [phone] (polish) documented in this encounter Plan of Treatment Not on file documented as of this encounter Visit Diagnoses Not on filedocumented in this encounter Additional Health Concerns Assessment Noted Time PHQ-9 Depression Total Score: 0 04/03/20 24 3:30 PM EDT documented as of this encounter Care Teams Machine Former Relationship Specialty Start Date End Date Name, MD Grant [address] [place] [address] PCP - General Family Medicine 11/10/21 documented as of this encounter
--- OUTSIDE RECORDS SUMMARY | 2025-01-26 07:55 | XMS_ITS | Encounter Summary ---
Author Organization [employer] Address [address] [facility] 7t [place] [address] Care Team Providers Care Mds Rn Name Role Phone Name, Grant HILTON Primary Care Provider [phone] Reason for Visit * Reason Comments Med Refill Encounter Details Date Type Department Care Team ([facility] st Contact Info) Description 01/16/2025 Refill [facility] MEDICINE [address] [place], [place] [phone] Emily Caceres NP [address] [place] [address] Social History Tobacco Use Types Packs/Day Years [...] as of this encounter Plan of Treatment Not on file documented as of this encounter Visit Diagnoses Not on filedocumented in this encounter Additional Health Concerns Assessment Noted Time PHQ-9 Depression Total Score: 0 04/03/20 24 3:30 PM EDT documented as of this encounter Care Teams Mds Rn Relationship Specialty Start Date End Date Name, MD Grant [address] [place] [address] PCP - General Family Medicine 11/10/21 documented as of this encounter
--- OUTSIDE RECORDS SUMMARY | 2025-01-26 07:55 | XMS_ITS | Encounter Summary ---
Author Organization [employer] Address [address] [facility] 7t [place] [address] Care Team Providers Care Staff Appraiser Name Role Phone Name, Grnat HILTON Primary Care Provider [phone] Reason for Visit * Reason Onset Date Comments Med Refill 01/07/2025 Encounter Details Date Type Department Care Team ([facility] st Contact Info) Description 01/07/2025 Refill [facility] MED[facility]INE [address] [place], [place] [phone] Nicol Horton MD [address] [place] [address] High cholesterol Social History Tobacco Use Types Packs/Day Years [...] as of this encounter Visit Diagnoses Diagnosis High cholesterol Pure hypercholesterolemia documented in this encounter Additional Health Concerns Assessment Noted Time PHQ-9 Depression Total Score: 0 04/03/20 24 3:30 PM EDT documented as of this encounter Care Teams Staff Appraiser Relationship Specialty Start Date End Date Name, MD Grant [address] [place] [address] PCP - General Family Medicine 11/10/21 documented as of this encounter
--- OUTSIDE RECORDS SUMMARY | 2025-01-26 07:55 | XMS_ITS | Encounter Summary ---
Author Organization [employer] [facility] Address [address] [place] [address] [place] [address] Care Team Providers Care Luggage Maker Name Role Phone Name, Grant HILTON Primary Care Provider [phone] Reason for Visit * Reason Onset Date Comments Med Refill 07/06/2023 Encounter Details Date Type Department Care Team (Late st Contact Info) Description 07/06/2023 Refill [facility] MEDICINE [address] [place] [address] Name, MD Grant [address] [place] [address] Hypertension, unspecified type Social History Tobacco Use [...] type documented in this encounter Care Teams Luggage Maker Relationship Specialty Start Date End Date NameGrant MD [address] [place] [address] PCP - General Family Medicine 11/10/21 documented as of this encounter
--- OUTSIDE RECORDS SUMMARY | 2025-01-26 07:55 | XMS_ITS | Encounter Summary ---
Author Organization [employer] Address [address] [facility] 7 [place] [address] Care Team Providers Care Mold Builder Name Role Phone Name, Grant HILTON Primary Care Provider [phone] Reason for Visit * Reason Onset Date Comments Med Refill 2024 Encounter Details Date Type Department Care Team ([facility] st Contact Info) Description 2024 Refill [facility] MED[facility]INE [address] [place], [place] [phone] Name, MD Grant [address] [place] [address] Social History Tobacco Use Types Packs/Day Years [...] documented as of this encounter Care Teams Mold Builder Relationship Specialty Start Date End Date Name, MD Grant [address] [place] [address] PCP - General Family Medicine 11/10/21 documented as of this encounter
--- OUTSIDE RECORDS SUMMARY | 2025-01-26 07:55 | XMS_ITS | Encounter Summary ---
Author Organization [employer] Address [address] [facility] 7 [place] [address] Care Team Providers Care Neurology Technologist Name Role Phone Name, Grant HILTON Primary Care Provider [phone] Reason for Visit * Reason Comments Hypertension Encounter Details Date Type Department Care Team ([facility] st Contact Info) Description 01/15/2025 3:30 PM EST Office Visit [facility] MEDICINE [address] [place] [phone] Name, MD Grant [address] [place] [address] Hypertension, unspecified type (Primary Dx); Screening for prostate cancer Social History Tobacco Use Types Packs/Day Years [...] Mass Index 24.69 01/15/2025 3:29 PM EST documented in this encounter Progress Notes * Grant Merritt MD - 01/15/2025 3:30 PM EST Subjective Patient ID: Rufus Lopez is a 59 y.o. male who presents for Hypertension. Patient comes for a follow-up visit. He is asymptomatic. Patient has years of hypertension. BP is much better since he started on combination of ARB/HCTZ at his last appointment. He checks his blood pressure at home daily. He has noted blood pressure as low as 100/60 after working out since he started on his current dose of Benicar HCT. He denies any dizziness. The patient works out at least 5 times a week. He only drinks water during his workouts. He drinks very little water during the day. Review of Systems Constitutional: Negative for chills, fatigue and fever. HENT: Negative for sore throat. Respiratory: Negative for cough, chest tightness and shortness of breath. Cardiovascular: Negative for chest pain, palpitations and leg swelling. Gastrointestinal: Negative for abdominal pain and blood in stool. Visit Vitals BP 132/75 Pulse 74 Temp 98 ??F (36.7 ??C) (Temporal) Resp 18 Ht 5' 9 (1.753 m) Wt 167 lb 3.2 oz (75.8 kg) SpO2 98% BMI 24.69 kg/m?? Smoking Status Never BSA 1.92 m?? Objective Physical Exam Constitutional: Appearance: Normal appearance. Cardiovascular: Rate and Rhythm: Normal rate and regular rhythm. Heart sounds: No murmur heard. Pulmonary: Effort: Pulmonary effort is normal. No respiratory distress. Breath sounds: No wheezing, rhonchi or rales. Abdominal: Palpations: Abdomen is soft. Tenderness: There is no abdominal tenderness. Musculoskeletal: Right lower leg: No edema. Left lower leg: No edema. Neurological: Mental Status: He is alert. Lab Results Component Value Date GLUCOSE 93 01/03/2025 NA 140 01/03/2025 K 4.5 01/03/2025 CO2 28 01/03/2025 CL 104 01/03/2025 BUN 23 (H) 01/03/2025 CREATININE 1.09 01/03/2025 Current Outpatient Medications on File Prior to Visit Medication Sig Dispense Refill Blood Pressure kit Use once day 1 kit 0 metoprolol succinate XL (Toprol-XL) 25 MG 24 hr tablet TAKE 1 TABLET BY MOUTH EVERY DAY 90 tablet 3 olopatadine (Pataday) 0.2 % ophthalmic solution Administer 1 drop into affected eye(s) in the morning. 2.5 mL 2 rosuvastatin (Crestor) 10 MG tablet TAKE 1 TABLET BY MOUTH EVERY DAY 90 tablet 0 [DISCONTINUED] olmesartan-hydroCHLOROthiazide (Benicar HCT) 40-12.5 MG tablet Take 1 tablet by mouth Once per day. 30 tablet 11 No current facility-administered medications on file prior to visit. Assessment/Plan Diagnoses and all orders for this visit: Hypertension, unspecified type Comments: Continue olmesartan/HCTZ and metoprolol at the same dose Continue current dose of Crestor for primary prevention of cardiovascular disease I encouraged the patient to continue exercising He is recommended to drink more water during the day and not only with exercise Continue checking blood pressure at home. Screening for prostate cancer Comments: I will recheck his PSA for prostate cancer screening. Orders: - PSA,Total; Future Other orders - olmesartan-hydroCHLOROthiazide (Benicar HCT) 40-12.5 MG tablet; Take 1 tablet by mouth Once per day. documented in this encounter Plan of Treatment Scheduled Orders Name Type Priority Associated Diagnoses Orde r Schedule PSA,Total Lab Routine Screening for prostate cancer Expected: 01/15/2025, Expires: 01/15/2026 documented as of this encounter Visit Diagnoses Diagnosis Hypertension, unspecified type- Primary Screening for prostate cancer Special screening for malignant neoplasm of prostate documented in this encounter Additional Health Concerns Assessment Noted Time PHQ-9 Depression Total Score: 0 04/03/20 24 3:30 PM EDT documented as of this encounter Care Teams Neurology Technologist Relationship Specialty Start Date End Date NameGrant MD [address] [place] [address] PCP - General Family Medicine 11/10/21 documented as of this encounter
--- OUTSIDE RECORDS SUMMARY | 2025-01-26 07:55 | XMS_ITS | Encounter Summary ---
Author Organization [employer] Address 75 [facility] 7t [place] [address] Care Team Providers Care Capital Project Engineer Name Role Phone Name, Grant HILTON Primary Care Provider [phone] Reason for Visit * Reason Comments Med Refill Encounter Details Date Type Department Care Team ([facility] st Contact Info) Description 01/05/2025 Refill [facility] MEDICINE [address] [place], [place] [phone] Name, MD Grant [address] [place] [address] High cholesterol Social History Tobacco Use Types [...] documented as of this encounter Care Teams Capital Project Engineer Relationship Specialty Start Date End Date Name, MD Grant [address] [place] [address] PCP - General Family Medicine 11/10/21 documented as of this encounter
--- OUTSIDE RECORDS SUMMARY | 2025-01-26 07:55 | XMS_ITS | Encounter Summary ---
Author Organization [employer] Address 75 [facility] 7t [place] [address] Care Team Providers Care Tarring Machine Operator Name Role Phone Name, Grant HILTON Primary Care Provider [phone] Encounter Details Date Type Department Care Team (Latest Contact Info) Description 01/15/2025 Travel Social History Tobacco Use Types Packs/Day [...] documented as of this encounter Care Teams Tarring Machine Operator Relationship Specialty Start Date End Date Name, MD Grant [address] [place] [address] PCP - General Family Medicine 11/10/21 documented as of this encounter
--- OUTSIDE RECORDS SUMMARY | 2025-01-26 07:55 | XMS_ITS | Encounter Summary ---
Author Organization [facility] Address [address] [facility] 7t [place] [address] Care Team Providers Care Pipe Covering Molder Name Role Phone Name, Grant HILTON Primary Care Provider [phone] Encounter Details Date Type Department Care Team ([facility] st Contact Info) Description 04/18/2023 Abstract [facility] MEDICINE [address] [place], [place] [phone] Name, MD Grant [address] [place] [address] Social History Tobacco Use Types Packs/Day Years [...] on file documented as of this encounter Procedures Procedure Name Priority Date/Time Associated Diagnosis Comments COLONOSCOPY Routine 02/27/2016 10:43 AM EDT documented in this encounter Results * Colonoscopy (02/27/2016 10:43 AM EDT) Colonoscopy Normal Normal Narrative Tari Jung - 02/27/2016 10:43 AM EDT Recommended 10 year follow up Historical Provider HEALTH MAINTENANCE Final Result documented in this encounter Visit Diagnoses Not on filedocumented in this encounter Care Teams Pipe Covering Molder Relationship Specialty Start Date End Date Name, MD Grant [address] [place] [address] PCP - General Family Medicine 11/10/21 documented as of this encounter
--- OUTSIDE RECORDS SUMMARY | 2025-01-26 07:55 | XMS_ITS | Encounter Summary ---
Author Organization [employer] Address [address] [facility] 7t [place] [address] Care Team Providers Care Quality Compliance Manager Name Role Phone Name, Grant HILTON Primary Care Provider [phone] Encounter Details Date Type Department Care Team ([facility] st Contact Info) Description 11/16/2022 Orders Only [facility] [address] [place] [address] Sandra Hopper LPN Social History Tobacco Use [...] on filedocumented in this encounter Care Teams Quality Compliance Manager Relationship Specialty Start Date End Date Name, MD Grant [address] [place] [phone] PCP - General Family Medicine 11/10/21 documented as of this encounter
[2025-01-26 08:58] LABS: Anion Gap 10 (12-20); Blood Urea Nitrogen 24 mg/dL (9-16); Calcium 9.4 mg/dL (8.4-10.2); Carbon Dioxide 28 mmol/L (22-29); Chloride 106 mmol/L (96-108); Estimated Glomerular Filt Rate > 60; Glucose Random 94 mg/dL (60-115); Potassium 4.4 mmol/L (3.3-5.1); Sodium 140 mmol/L (135-145)
[2025-01-26 09:22] LABS: Prostate Specific Antigen 1.59 ng/mL (<0.05-4.0)
== END 2025-01-26 07:53 | disposition home or self-care (01) ==
LOC: HO.LAB 07:52
PROVIDERS: PCP Internal Medicine Geriatric Medicine; Visit Provider Internal Medicine Geriatric Medicine
DX: I10 Essential (primary) hypertension (principal); Z12.5 Encounter for screening for malignant neoplasm of prostate
CPT/HCPCS: 36415; 80048; 84153

== ENCOUNTER 2025-06-22 06:56 | Outpatient (REF) | payer BC, SELFPAY ==
[2025-06-22 08:19] LABS: Anion Gap 12 (12-20); Blood Urea Nitrogen 27 mg/dL (9-16); Calcium 9.4 mg/dL (8.4-10.2); Carbon Dioxide 27 mmol/L (22-29); Chloride 107 mmol/L (96-108); Estimated Glomerular Filt Rate > 60; Potassium 4.3 mmol/L (3.3-5.1); Sodium 142 mmol/L (135-145)
== END 2025-06-22 06:57 | disposition home or self-care (01) ==
LOC: HO.LAB 06:56
PROVIDERS: PCP Internal Medicine Geriatric Medicine; Visit Provider Internal Medicine Geriatric Medicine
DX: I10 Essential (primary) hypertension (principal)
CPT/HCPCS: 36415; 80048